=== PATIENT | female | born 1965 | race Caucasian/White ===

== ENCOUNTER 2016-10-29 08:40 | Emergency (ER) | payer MEDICARE, OTHER ==
[~2016-10-29] VITALS: Ht 171.4 cm; Wt 107.0 kg
[~2016-10-29 08:40] MED LIST: IBUP800T23 PO; MORP1CAP64 PO; MORP1TAB25 PO; NYSTCRE29 TOPICAL; XOPEAER4 INH
[2016-10-29 08:43] VITALS: BP 174/72; PULSE 78; RESP 16; TEMP 98.6
[2016-10-29] MEDS ORDERED: OXYC1TAB36 PO (08:58)
[2016-10-29] MEDS ORDERED: HYDROmorphone HCL PF 1 MG/ML VIAL IVS ONE (09:00)
[2016-10-29] MEDS ORDERED: ONDANSETRON HCL 4 MG/2 ML VIAL IVP ONE (09:00)
[2016-10-29] MEDS ORDERED: SODIUM CHLOR 0.9% 1000 ML INJ 1,000 ML IV SCH (09:00)
--- NOTE | 2016-10-29 09:06 | PD ---
HPI Chief Complaint: Abdominal Pain Time Seen by Provider: 09:00 Travel History International Travel<30 days: No Contact w/Intl Traveler<30days: No Traveled to known affect area: No History of Present Illness HPI PATIENT STATES THAT SHE HAS ABDOMINAL PAIN, DIFFUSE, CRAMPY, 11/07, NONRAD, DENIES ANY ALLEVIATING OR AGGRAVATING FACTORS AND DENIES ANY ASSOCIATED SX SUCH FEVER/N/V/D/RED STREAKS ON ABDOME. 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) Diabetes: No Diminished Hearing: No Endocrine: No Gastrointestinal Disorders: Yes (NARROW ESOPHAGUS) GERD: Yes Genitourinary: Yes (, HAS HAD FREQ KIDNEY INFECTIONS) Hepatitis: No Hiatal Hernia: No Immune Disorder: No Medical other: Yes (LYMES DISEASE, NEUROPATHY EXTREMITIES) Musculoskeletal: Yes (SEVERE SPINE INJURIES WITH LINGERING PAIN) Neurologic: No Psychiatric: No Reproductive: No Respiratory: Yes (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) Thyroid Disease: No ?: Not : 3 Para: 1 Miscarriage: 1 Dilation and Curettage (D&C): Yes Tubal Ligation: Yes Past Surgical History Abdominal Surgery: Yes (HYDATAFORM MOLE REMOVED; 2 EXP LAP/LEEP PROCEDURES ( 2ND ONE PT HEMORRHAGED)) AICD: No Cholecystectomy: Yes Joint Replacement: No Pacemaker: No Other Surgery: Yes (umbilical hernia) Social History Alcohol Use: No Tobacco Use: No Substance Use: No Allergies-Medications (Allergen,Severity, Reaction): Coded Allergies: lidocaine (Unverified Allergy, Mild, 10/29/16) naproxen (Unverified Allergy, Mild, FACIAL SWELLING, 10/29/16) Reported Meds & Prescriptions Reported Meds & Active Scripts Active Zantac (Ranitidine HCl) 150 Mg Tab 150 Mg PO DAILY Nystatin-Triamcinolone 100,000-0.1 Unit/Gm Cream 1 Applic TOPICAL BID Reported Oxycodone-Acetaminophen 10-325 mg Tab 1 Tab PO Q4H PRN Xopenex Hfa 15 GM Inh (Levalbuterol 15 GM Inh) 45 Mcg/Act Aer 45 Mcg INH Q4HR Shake well before using. (1 puff = 45 mcg) Ibuprofen 800 Mg Tab 800 Mg PO Q6HR PRN Morphine ER (Morphine Sulfate) 30 Mg Tab 30 Mg PO BID Morphine ER 24 HR (Morphine Sulfate) 60 Mg Caper 60 Mg PO DAILY Physical Exam Narrative GENERAL: SKIN: Warm and dry. HEAD: Atraumatic. Normocephalic. EYES: Pupils equal and round. No scleral icterus. No injection or drainage. ENT: No nasal bleeding or discharge. Mucous membranes pink and moist. NECK: Trachea midline. No JVD. CARDIOVASCULAR: Regular rate and rhythm. RESPIRATORY: No accessory muscle use. Clear to auscultation. Breath sounds equal bilaterally. GASTROINTESTINAL: Abdomen soft, non-tender, nondistended. OBESE, HAS ABD BINDER , BUT IS LOOSE, NOTED TO HAVE NEGATIVE CELLULITIC OR DISCHARGE FROM LAPAROSCOPIC WOUNDS MUSCULOSKELETAL: Extremities without clubbing, cyanosis, or edema. No obvious deformities. NEUROLOGICAL: Awake and alert. No obvious cranial nerve deficits. Motor grossly within normal limits. Five out of 5 muscle strength in the arms and legs. Normal speech. PSYCHIATRIC: Appropriate mood and affect; insight and judgment normal. Data Data Last Documented VS Vital Signs Date Time Temp Pulse Resp B/P (MAP) Pulse Ox O2 Delivery O2 Flow Rate FiO2 10/29/16 08:47 15 10/29/16 08:43 98.6 78 174/72 (106) Orders Orders Complete Blood Count With Diff (10/29/16 09:00) Comprehensive Metabolic Panel (10/29/16 09:00) Lipase (10/29/16 09:00) Urinalysis - C+S If Indicated (10/29/16 09:00) Ct Abd/Pel W/O Iv Contrast (10/29/16 09:00) Iv Access Insert/Monitor (10/29/16 09:00) Ecg Monitoring (10/29/16 09:00) Oximetry (10/29/16 09:00) NPO (10/29/16 09:00) Ondansetron Inj (Zofran Inj) (10/29/16 09:00) Sodium Chlor 0.9% 1000 Ml Inj (Ns 1000 M (10/29/16 09:00) Hydromorphone Pf Inj (Dilaudid Pf Inj) (10/29/16 09:00) Ranitidine Liq (Zantac Liq) (10/29/16 13:45) Hydromorphone Pf Inj (Dilaudid Pf Inj) (10/29/16 15:30) Labs Laboratory Tests Test 10/29/16 09:00 White Blood Count 17.3 TH/MM3 Red Blood Count 5.27 MIL/MM3 Hemoglobin 14.4 GM/DL Hematocrit 44.7 % Mean Corpuscular Volume 84.9 FL Mean Corpuscular Hemoglobin 27.2 PG Mean Corpuscular Hemoglobin Concent 32.1 % Red Cell Distribution Width 14.5 % Platelet Count 238 TH/MM3 Mean Platelet Volume 8.9 FL Neutrophils (%) (Auto) 79.9 % Lymphocytes (%) (Auto) 12.1 % Monocytes (%) (Auto) 6.8 % Eosinophils (%) (Auto) 0.9 % Basophils (%) (Auto) 0.3 % Neutrophils # (Auto) 13.8 TH/MM3 Lymphocytes # (Auto) 2.1 TH/MM3 Monocytes # (Auto) 1.2 TH/MM3 Eosinophils # (Auto) 0.2 TH/MM3 Basophils # (Auto) 0.1 TH/MM3 CBC Comment DIFF FINAL Differential Comment Blood Urea Nitrogen 10 MG/DL Creatinine 0.88 MG/DL Random Glucose 129 MG/DL Total Protein 7.6 GM/DL Albumin 3.2 GM/DL Calcium Level 9.5 MG/DL Alkaline Phosphatase 115 U/L Aspartate Amino Transf (AST/SGOT) 44 U/L Alanine Aminotransferase (ALT/SGPT) 90 U/L Total Bilirubin 1.5 MG/DL Sodium Level 137 MEQ/L Potassium Level 3.4 MEQ/L Chloride Level 100 MEQ/L Carbon Dioxide Level 28.9 MEQ/L Anion Gap 8 MEQ/L Estimat Glomerular Filtration Rate 67 ML/MIN Lipase 82 U/L [facility] Medical Decision Making Medical Screen Exam Complete: Yes Emergency Medical Condition: Yes Medical Record Reviewed: Yes Differential Diagnosis SBO V INTRAABDOMINAL ABSCESS V POST OP PAIN Narrative Course ON REEVALUATION PATIENT CT NEG FOR ABSCESS OR E/O PERFORATION, NO ANEMIA, REACTIVE LEUKOCYTOSIS NOTED. AFEBRILE WILL D/C AND ADVISE F/U WITH DR WILDE.... PAIN MANAGEMENT DOCTOR WILL MAKE ADJUSTMENTS TO HER PAIN MEDICATION AND REQUESTS ONLY I ADD ZANTAC PO HERE AND PRESCRIPTION WHICH WILL BE DONE Diagnosis Primary Impression: POST OP ABDOMINAL PAIN Referrals: Romain Wilde MD NO EVIDENCE OF ANY INFECTION ON CAT SCAN OR EXAMINATION. YOU ARE ADVISED TO FOLLOWUP WITH DR DELGADO FOR FURTHER EVALUATION AND CARE...CALL TO BE SEEN ON Oct Patient Instructions: Abdominal Pain (ED), General Instructions Scripts Ranitidine (Zantac) 150 Mg Tab 150 MG PO DAILY for Reduce Stomach Acid, #30 TAB 0 Refills Prov: Sameer Maya MD 10/29/16 Disposition: 01 DISCHARGE HOME Condition: Stable Sameer Maya MD Oct 29, 2016 09:06
[2016-10-29 09:38] LABS: AUTOMATED NEUTROPHIL # 13.8 TH/MM3 (1.8-7.7); BASOPHIL # 0.1 TH/MM3 (0-0.2); BASOPHIL % 0.3 % (0.0-2.0); EOSINOPHIL # 0.2 TH/MM3 (0-0.4); EOSINOPHIL % 0.9 % (0.0-4.0); HEMATOCRIT 44.7 % (35.0-46.0); HEMO FLAGS DIFF FINAL; LYMPH % 12.1 % (9.0-44.0); LYMPHOCYTE # 2.1 TH/MM3 (1.0-4.8); MEAN CELL VOLUME 84.9 FL (80.0-100.0); MEAN CORPUSCULAR HEMOGLOBIN 27.2 PG (27.0-34.0); MEAN CORPUSCULAR HGB CONC 32.1 % (32.0-36.0); MONO % 6.8 % (0.0-8.0); NEUT % 79.9 % (16.0-70.0); PLATELET COUNT 238 TH/MM3 (150-450); RED BLOOD COUNT 5.27 MIL/MM3 (4.00-5.30); RED CELL DISTRIBUTION WIDTH 14.5 % (11.6-17.2); WHITE BLOOD COUNT 17.3 TH/MM3 (4.0-11.0)
[2016-10-29 09:54] LABS: ANION GAP 8 MEQ/L (5-15); AST (GOT) 44 U/L (15-37); BICARBONATE 28.9 MEQ/L (21.0-32.0); BLOOD UREA NITROGEN 10 MG/DL (7-18); CHLORIDE 100 MEQ/L (98-107); GLOMERULAR FILTRATION RATE 67 ML/MIN (>89); POTASSIUM 3.4 MEQ/L (3.5-5.1); SODIUM (NA) 137 MEQ/L (136-145)
[2016-10-29 09:55] LABS: ALT (GPT) 90 U/L (10-53)
[2016-10-29 09:57] LABS: ALKALINE PHOSPHATASE 115 U/L (45-117); TOTAL BILIRUBIN ADULT 1.5 MG/DL (0.2-1.0)
--- NOTE | 2016-10-29 10:49 | RADRPT ---
EXAM DATE/TIME: 10/29/2016 10:14 [place] COMPARISON: No previous studies available for comparison. INDICATIONS : Post operative upper right quadrant pain. Lap sophia done on Tuesday of this week. ORAL CONTRAST: No oral contrast ingested. RADIATION DOSE: 16.19 CTDIvol (mGy) MEDICAL HISTORY : Asthma, narrow esophagus SURGICAL HISTORY : Cholecystectomy. Tubal ligation. ENCOUNTER: Initial ACUITY: 3 days PAIN SCALE: 10/10 LOCATION: Right upper quadrant TECHNIQUE: Volumetric scanning of the abdomen and pelvis was performed. Using automated exposure control and ad justment of the mA and/or kV according to patient size, radiation dose was kept as low as reasonably achievable to obtain optimal diagnostic quality images. DICOM format image data is available electro nically for review and comparison. FINDINGS: LOWER LUNGS: Mild linear atelectasis involving the lung bases. No effusions or infiltrates. LIVER: Homogeneous density without lesion. There is no dilation of the biliary tree. Postsurgical stranding of the fat within the gallbladder fossa. No fluid collection or hematoma. Gallbladder is surgically absent. SPLEEN: Normal size without lesion. PANCREAS: Within normal limits. KIDNEYS: Normal in size and shape. There is no mass, stone, or hydronephrosis. ADRENAL GLANDS: Within normal limits. VASCULAR: There is no aortic aneurysm. BOWEL/MESENTERY: The stomach, small bowel, and colon demonstrate no acute abnormality. There is no free intraperitone al air. A trace amount of free fluid is tracking down the left paracolic gutter and adjacent to the l iver. ABDOMINAL WALL: There is subcutaneous air involving the left abdomen from prior surgery and trocar placement. No flui d collection or abscess. A tiny umbilical hernia noted. RETROPERITONEUM: There is no lymphadenopathy. BLADDER: No wall thickening or mass. REPRODUCTIVE: Within normal limits. INGUINAL: There is no lymphadenopathy or hernia. MUSCULOSKELETAL: Within normal limits for patient age. CONCLUSION: 1. Post surgical changes involving the gallbladder fossa. No abscess, fluid collection, or hematoma. 2. Trace amount of free fluid within the belly. 3. Umbilical hernia. 4. Postsurgical air involving the anterior abdominal wall. Regis Valencia Jr., MD on October 29, 2016 at 10:28 Board Certified Radiologist. This report was verified electronically.
[2016-10-29] MEDS ORDERED: ZANT150T2 PO (13:40)
[2016-10-29] MEDS ORDERED: RANITIDINE HCL SYRUP 150 MG/10 ML UDC PO ONE (13:45)
[2016-10-29] MEDS ORDERED: HYDROmorphone HCL PF 1 MG/ML VIAL IV PUSH ONE (15:30)
[2016-10-29 16:30] VITALS: BP 194/84; PULSE 77; RESP 15; O2SAT 99
[2016-10-29 16:50] VITALS: BP 187/87
== END 2016-10-29 17:05 | disposition home or self-care (01) ==
LOC: NEPE 08:40
DX: R10.84 Generalized abdominal pain (principal); G89.18 Other acute postprocedural pain; D72.829 Elevated white blood cell count, unspecified; Z98.890 Other specified postprocedural states; Z86.79 Personal history of other diseases of the circulatory system; Z87.19 Personal history of other diseases of the digestive system; Z87.448 Personal history of other diseases of urinary system; Z86.2 Personal history of diseases of the blood and blood-forming organs and certain disorders involving the immune mechanism; Z87.39 Personal history of other diseases of the musculoskeletal system and connective tissue; Z87.09 Personal history of other diseases of the respiratory system
CPT/HCPCS: 74176; 80053; 83690; 85025; 96374; 96375; 96376; 99285; J1170; J2405; J7030